=== PATIENT | female | born 1955 ===

== ENCOUNTER 2016-12-19 00:08 | Emergency (ER) | payer OTHER ==
[2016-12-19 00:17] VITALS: BP 154/88; PULSE 72; RESP 16; TEMP 98.3; O2SAT 98
--- NOTE | 2016-12-19 01:08 | ED PDOC ---
HPI: General Adult Time Seen by Provider: 12/19/16 00:18 Chief Complaint (Nursing): Headache Chief Complaint (Provider): Shoulder pain and neck pain History Per: Patient History/Exam Limitations: no limitations Onset/Duration Of Symptoms: Hrs Current Symptoms Are (Timing): Still Present Additional Complaint(s): Cheryl Uribe is a 61 y/o female with a past medical history of hypertension and rheumatoid arthritis who presents to the ED with chief complaints of shoulder and neck pain along with some associated pain in the legs earlier today (has since resolved). Patient reports difficulty moving the neck from left to right. Denies any fever or headache. PMD: Dr. Brandie Arizmendi Past Medical History Reviewed: Historical Data, Nursing Documentation, Vital Signs Vital Signs: Last Vital Signs Temp 98.3 F 12/19/16 00:14 Pulse 72 12/19/16 00:14 Resp 16 12/19/16 00:14 BP 154/88 H 12/19/16 00:14 Pulse Ox 98 12/19/16 01:49 - Medical History PMH: HTN, Rheumatoid Arthritis - Surgical History Surgical History: No Surg Hx - Family History Family History: States: Unknown Family Hx - Home Medications Home Medications: Ambulatory Orders Medication Instructions Recorded Cyclobenzaprine [Cyclobenzaprine 10 mg PO BID #15 tab 12/19/16 HCl] Ketorolac Tromethamine [Toradol] 10 mg PO BID #20 tab 12/19/16 - Allergies Allergies/Adverse Reactions: Allergies Allergy/AdvReac Type Severity Reaction Status Date / Time No Known Allergies Allergy Verified 12/19/16 00:17 Review of Systems ROS Statement: Except As Marked, All Systems Reviewed And Found Negative Constitutional: Negative for: Fever Musculoskeletal: Positive for: Neck Pain (Biateral pain in neck. ), Shoulder Pain (Biateral pain in shoulder), Leg Pain (Has since resolved) Neurological: Negative for: Headache Physical Exam - Reviewed Nursing Documentation Reviewed: Yes Vital Signs Reviewed: Yes - Physical Exam Appears: Positive for: Well, Non-toxic, No Acute Distress Head Exam: Positive for: ATRAUMATIC, NORMAL INSPECTION, NORMOCEPHALIC Skin: Positive for: Normal Color, Warm, Dry Eye Exam: Positive for: Normal appearance, EOMI, PERRL ENT: Positive for: Normal ENT Inspection Neck: Positive for: Normal. Negative for: Painless ROM (Tenderness to paracervical musculature. Stiff neck. Difficulty moving neck left and right. Increased pain on active and passive turning of head.) Cardiovascular/Chest: Positive for: Regular Rate, Rhythm, Chest Non Tender. Negative for: Murmur, Tachycardia Respiratory: Positive for: Normal Breath Sounds. Negative for: Wheezing, Respiratory Distress Neurologic/Psych: Positive for: Alert, Oriented - ECG O2 Sat by Pulse Oximetry: 98 (RA) Pulse Ox Interpretation: Normal Medical Decision Making Medical Decision Making: Time: 0018: Initial Impression: Muscle spasm Initial Plan: * Flexeril 10mg * Torodal 30mg * Re-Eval Scribe Attestation: Documented by Krystle Ramos acting as a scribe for Heraclio Syed MD. Provider Scribe Attestation: All medical record entries made by the Scribe were at my direction and personally dictated by me. I have reviewed the chart and agree that the record accurately reflects my personal performance of the history, physical exam, medical decision making, and the department course for this patient. I have also personally directed, reviewed, and agree with the discharge instructions and disposition. Time: 0048: Upon provider reevaluation patient is feeling better, is medically stable, and requires no further treatment in the ED at this time. Patient will be discharged home. Counseling was provided and all questions were answered regarding diagnosis return precautions given. There is agreement to discharge plan. Return if symptoms persist or worsen. Disposition - Clinical Impression Clinical Impression: Muscle spasm - Disposition Referrals: [facility] [Outside] Disposition: Routine/Home Disposition Time: 01:51 Condition: STABLE Prescriptions: Cyclobenzaprine [Cyclobenzaprine HCl] 10 mg PO BID #15 tab Ketorolac Tromethamine [Toradol] 10 mg PO BID #20 tab Instructions: Cervical Strain (DC), Neck Exercises (GEN), Muscle Spasm (ED)
== END 2016-12-19 01:50 | disposition home or self-care (01) ==
LOC: H.ER 00:08
DX: M54.2 Cervicalgia (principal); M62.838 Other muscle spasm; M06.9 Rheumatoid arthritis, unspecified; I10 Essential (primary) hypertension